=== PATIENT | female | born 1955 | race Caucasian/White ===

== ENCOUNTER → 2018-09-29 | Outpatient (CLI) | payer OTHER ==
--- NOTE | 2018-11-17 11:48 | EM ---
EVENT MONITOR A 30-DAY EVENT MONITOR DATE OF SERVICE: September 29, 2018 The patient was monitored for 30 days. The baseline rhythm appeared to be a sinus mechanism. The patient did have multiple episodes of advanced AV block. She did have multiple episodes of sinus pauses with the longest of 10 seconds at 6:00 in the afternoon. Beside that, she did have multiple episodes of paroxysmal atrial tachycardia. CONCLUSION: 1. This is a 30-day event monitor. 2. Sinus rhythm as a baseline mechanism. 3. Evidence of tachy-angela syndrome. 4. Evidence of advanced AV block seen. 5. Evidence of sinus pauses with the longest of 10 seconds. 6. Evidence of multifocal paroxysmal atrial tachycardia. MMODL / IJN: [id number] /
== END | disposition home or self-care (01) ==
LOC: RADECHMAIN 12:36
PROVIDERS: ATTEND Internal Medicine
DX: I47.1 Supraventricular tachycardia (principal); I10 Essential (primary) hypertension
CPT/HCPCS: 93270

== ENCOUNTER 2018-12-11 10:19 | Emergency (ER) | payer OTHER ==
[2018-12-11 10:28] VITALS: TEMP 98.4
--- NOTE | 2018-12-11 10:59 | ED ---
General Adult HPI - General Chief complaint: Arrhythmia/Palpitations Stated complaint: palpitations Time Seen by Provider: 12/11/18 10:30 Source: patient, RN notes reviewed Mode of arrival: wheelchair Limitations: no limitations - History of Present Illness Initial comments: Patient is a pleasant 63-year-old female presenting to the emergency Department with complaints of palpitations. Palpitations described as a pounding heartbeat. Patient does have history of previous atrial fibrillation. Patient was taken off of her beta santiago one week ago. Patient started having symptoms 2 days ago. No chest pain. Patient did have some shaking of her right arm and right leg few days ago. Patient did have some back discomfort 2 days ago. None since that time. No chest pain. No dyspnea. - Related Data Home Medications Medication Instructions Recorded Confirmed Atorvastatin Calcium [Lipitor] 10 mg PO DAILY 12/11/18 12/11/18 Hydrochlorothiazide 50 mg PO DAILY 12/11/18 12/11/18 INSULIN LISPRO (humaLOG) [humaLOG] 5 units SQ DAILY 12/11/18 12/11/18 Insulin Glargine,Hum.rec.anlog 18 units SQ DAILY 12/11/18 12/11/18 [Toujeo Solostar] Lisinopril [Zestril] 40 mg PO DAILY 12/11/18 12/11/18 Metoprolol Tartrate [Lopressor] 100 mg PO BID 12/11/18 12/11/18 Triamterene/Hydrochlorothiazid 1 tab PO DAILY 12/11/18 12/11/18 [Triamterene-Hctz 37.5-25 mg Tb] Warfarin Sodium [Coumadin] 3 mg PO SUTUTH 12/11/18 12/11/18 Warfarin Sodium [Coumadin] 4 mg PO MOWEFRSA 12/11/18 12/11/18 amLODIPine [Norvasc] 10 mg PO DAILY 12/11/18 12/11/18 Allergies Allergy/AdvReac Type Severity Reaction Status Date / Time shellfish derived [Shellfish] AdvReac Nausea & Verified 12/11/18 11:28 Vomiting & Diarrhea Review of Systems ROS Statement: Those systems with pertinent positive or pertinent negative responses have been documented in the HPI. ROS Other: All systems not noted in ROS Statement are negative. Constitutional: Denies: fever Eyes: Denies: eye pain ENT: Denies: ear pain Respiratory: Denies: cough Cardiovascular: Reports: palpitations. Denies: chest pain Endocrine: Denies: fatigue Gastrointestinal: Denies: abdominal pain Genitourinary: Denies: dysuria Musculoskeletal: Reports: as per HPI Skin: Denies: rash Neurological: Denies: weakness Past Medical History Past Medical History: Atrial Fibrillation, COPD, Diabetes Mellitus, GERD/Reflux, Hyperlipidemia, Hypertension Additional Past Medical History / Comment(s): Lung CA (in remission) History of Any Multi-Drug Resistant Organisms: None Reported Additional Past Surgical History / Comment(s): Lung resection Past Psychological History: No Psychological Hx Reported Smoking Status: Former smoker Past Alcohol Use History: Occasional Past Drug Use History: None Reported General Exam Limitations: no limitations General appearance: alert, in no apparent distress Head exam: Present: atraumatic Eye exam: Present: normal appearance, PERRL ENT exam: Present: normal oropharynx Neck exam: Present: normal inspection Respiratory exam: Present: normal lung sounds bilaterally Cardiovascular Exam: Present: regular rate, normal rhythm, other Expanded Peripheral pulses: 2+: Radial (R), Radial (L), Dorsalis Pedis (R), Dorsalis Pedis (L) GI/Abdominal exam: Present: soft. Absent: tenderness Extremities exam: Present: normal inspection. Absent: pedal edema, calf tenderness Neurological exam: Present: alert Psychiatric exam: Present: normal affect, normal mood Skin exam: Present: normal color Course Vital Signs 12/11/18 12/11/18 12/11/18 10:25 10:43 10:44 Temperature 98.4 F Pulse Rate 125 H 101 H 101 H Pulse Rate [ Newspaper Peddler ] Respiratory 18 25 H 20 Rate Blood Pressure 187/91 185/92 O2 Sat by Pulse 98 95 Oximetry 12/11/18 12/11/18 12/11/18 10:46 10:50 11:30 Temperature Pulse Rate 104 H 90 Pulse Rate [ 106 H Newspaper Peddler ] Respiratory 20 16 Rate Blood Pressure 176/89 137/89 O2 Sat by Pulse 94 L 98 Oximetry 12/11/18 12:30 Temperature Pulse Rate 81 Pulse Rate [ Newspaper Peddler ] Respiratory 20 Rate Blood Pressure 158/79 O2 Sat by Pulse 98 Oximetry - Reevaluation(s) Reevaluation #1: 12/11/18 10:58 Heart rhythm on the monitor is sinus rhythm. Rate varies between 87 and 105. Patient is placed on heart monitor secondary to palpitations and to monitor for arrhythmia. EKG Findings - EKG Comments: EKG Findings:: Sinus tachycardia 107. MD 168. QRS 86. QT 322. QTC 429. Normal axis. Normal QRS. No acute ST change. Medical Decision Making - Medical Decision Making Patient reevaluated and resting comfortably in bed. Heart rate 85. Patient symptom-free at this time. Patient updated on results and need for follow-up. - Lab Data Result diagrams: 12/11/18 10:40 12/11/18 10:40 Lab Results 12/11/18 12/11/18 12/11/18 Range/Units 10:40 10:40 10:40 WBC 6.3 (3.8-10.6) k/uL RBC 4.22 (3.80-5.40) m/uL Hgb 14.0 (11.4-16.0) gm/dL Hct 43.3 (34.0-46.0) % MCV 102.6 H (80.0-100.0) fL MCH 33.3 (25.0-35.0) pg MCHC 32.4 (31.0-37.0) g/dL RDW 12.7 (11.5-15.5) % Plt Count 209 (150-450) k/uL Neutrophils % 66 % Lymphocytes % 22 % Monocytes % 5 % Eosinophils % 4 % Basophils % 0 % Neutrophils # 4.2 (1.3-7.7) k/uL Lymphocytes # 1.4 (1.0-4.8) k/uL Monocytes # 0.3 (0-1.0) k/uL Eosinophils # 0.3 (0-0.7) k/uL Basophils # 0.0 (0-0.2) k/uL Macrocytosis Slight PT 28.2 H (9.0-12.0) sec INR 2.9 H (<1.2) APTT 37.3 H (22.0-30.0) sec D-Dimer 0.33 (<0.60) mg/L FEU Sodium 138 (137-145) mmol/L Potassium 4.5 (3.5-5.1) mmol/L Chloride 105 (98-107) mmol/L Carbon Dioxide 23 (22-30) mmol/L Anion Gap 10 mmol/L BUN 21 H (7-17) mg/dL Creatinine 1.28 H (0.52-1.04) mg/dL Est GFR (CKD-EPI)AfAm 52 (>60 ml/min/1.73 sqM) Est GFR (CKD-EPI)NonAf 45 (>60 ml/min/1.73 sqM) Glucose 172 H (74-99) mg/dL Calcium 9.7 (8.4-10.2) mg/dL Magnesium 1.6 (1.6-2.3) mg/dL Total Bilirubin 0.6 (0.2-1.3) mg/dL AST 28 (14-36) U/L ALT 22 (9-52) U/L Alkaline Phosphatase 74 (38-126) U/L Troponin I (0.000-0.034) ng/mL Total Protein 7.3 (6.3-8.2) g/dL Albumin 4.6 (3.5-5.0) g/dL TSH 2.020 (0.465-4.680) mIU/L Free T4 1.28 (0.78-2.19) ng/dL Free T3 pg/mL 4.4 (2.8-5.3) pg/ml 12/11/18 Range/Units 10:40 WBC (3.8-10.6) k/uL RBC (3.80-5.40) m/uL Hgb (11.4-16.0) gm/dL Hct (34.0-46.0) % MCV (80.0-100.0) fL MCH (25.0-35.0) pg MCHC (31.0-37.0) g/dL RDW (11.5-15.5) % Plt Count (150-450) k/uL Neutrophils % % Lymphocytes % % Monocytes % % Eosinophils % % Basophils % % Neutrophils # (1.3-7.7) k/uL Lymphocytes # (1.0-4.8) k/uL Monocytes # (0-1.0) k/uL Eosinophils # (0-0.7) k/uL Basophils # (0-0.2) k/uL Macrocytosis PT (9.0-12.0) sec INR (<1.2) APTT (22.0-30.0) sec D-Dimer (<0.60) mg/L FEU Sodium (137-145) mmol/L Potassium (3.5-5.1) mmol/L Chloride (98-107) mmol/L Carbon Dioxide (22-30) mmol/L Anion Gap mmol/L BUN (7-17) mg/dL Creatinine (0.52-1.04) mg/dL Est GFR (CKD-EPI)AfAm (>60 ml/min/1.73 sqM) Est GFR (CKD-EPI)NonAf (>60 ml/min/1.73 sqM) Glucose (74-99) mg/dL Calcium (8.4-10.2) mg/dL Magnesium (1.6-2.3) mg/dL Total Bilirubin (0.2-1.3) mg/dL AST (14-36) U/L ALT (9-52) U/L Alkaline Phosphatase (38-126) U/L Troponin I <0.012 (0.000-0.034) ng/mL Total Protein (6.3-8.2) g/dL Albumin (3.5-5.0) g/dL TSH (0.465-4.680) mIU/L Free T4 (0.78-2.19) ng/dL Free T3 pg/mL (2.8-5.3) pg/ml - Radiology Data Radiology results: image reviewed (Chest x-ray shows no acute process) Disposition Clinical Impression: Palpitations Disposition: HOME SELF-CARE Condition: Stable Instructions (If sedation given, give patient instructions): Heart Palpitations (ED) Additional Instructions: Please follow-up with primary care physician in the next day or 2 for recheck. Please also follow-up with your corporate security officer this week. Return for increased heart rate, chest pain, difficulty breathing, worsening symptoms or other concerns. Is patient prescribed a controlled substance at d/c from ED?: No Referrals: Ludwig Madison MD [Primary Care Provider] - 1-2 days Michael Cardenas MD [STAFF PHYSICIAN] - 1-2 days Time of Disposition: 14:19
--- NOTE | 2018-12-11 11:26 | XR ---
EXAMINATION TYPE: XR chest 2V DATE OF EXAM: 12/11/2018 COMPARISON: NONE HISTORY: Dysrhythmia TECHNIQUE: Frontal and lateral views of the chest are obtained. FINDINGS: Surgical clips are present in the the right upper chest. There is a Port-A-Cath present wi th the distal tip of the catheter in the superior vena cava level. Aorta is dense. There is no pneumo thorax or pleural effusion. Cardiac mediastinal silhouette, pulmonary vascularity and judson within nor mal limits. Lucency is well-circumscribed in the right humeral head with sclerotic margin and of ques tionable clinical significance. Prominent lung lines with flattening hemidiaphragms may be indicative of COPD. IMPRESSION: No acute cardiopulmonary process. Additional findings above.
[2018-12-11 11:52] LABS: Albumin 4.6 g/dL (3.5-5.0); Calcium 9.7 mg/dL (8.4-10.2); Magnesium 1.6 mg/dL (1.6-2.3); Potassium 4.5 mmol/L (3.5-5.1); Total Bilirubin 0.6 mg/dL (0.2-1.3); Total Protein 7.3 g/dL (6.3-8.2)
[2018-12-11 12:02] LABS: Basophils % (A) 0 %; Eosinophils # (A) 0.3 k/uL (0-0.7); Eosinophils % (A) 4 %; HCT 43.3 % (34.0-46.0); Lymphocytes # (A) 1.4 k/uL (1.0-4.8); Lymphocytes % (A) 22 %; MCH 33.3 pg (25.0-35.0); MCHC 32.4 g/dL (31.0-37.0); MCV 102.6 fL (80.0-100.0); Macrocytosis Slight; Mean Platelet Volume 7.6; Monocytes # (A) 0.3 k/uL (0-1.0); Monocytes % (A) 5 %; Neutrophils # (A) 4.2 k/uL (1.3-7.7); Neutrophils % (A) 66 %; Platelet Count 209 k/uL (150-450); RBC 4.22 m/uL (3.80-5.40); RDW 12.7 % (11.5-15.5); WBC 6.3 k/uL (3.8-10.6)
[2018-12-11 12:06] LABS: D-Dimer 0.33 mg/L FEU (<0.60); INR 2.9 (<1.2); Partial Thromboplastin Time 37.3 sec (22.0-30.0); Prothrombin Time 28.2 sec (9.0-12.0)
[2018-12-11 12:07] LABS: T4, Free (Free Thyroxine) 1.28 ng/dL (0.78-2.19)
[2018-12-11 14:36] VITALS: BP 161/85; PULSE 86; RESP 18
== END 2018-12-11 14:48 | disposition home or self-care (01) ==
LOC: EC 10:19
DX: R00.2 Palpitations (principal); I48.91 Unspecified atrial fibrillation; E11.9 Type 2 diabetes mellitus without complications; I10 Essential (primary) hypertension; E78.5 Hyperlipidemia, unspecified; Z87.891 Personal history of nicotine dependence; Z91.013 Allergy to seafood; Z79.01 Long term (current) use of anticoagulants; Z79.4 Long term (current) use of insulin; Z79.899 Other long term (current) drug therapy; Z85.118 Personal history of other malignant neoplasm of bronchus and lung; Z90.2 Acquired absence of lung [part of]
CPT/HCPCS: 36415; 71046; 80053; 83735; 84439; 84443; 84481; 84484; 85025; 85379; 85610; 85730; 93005; 99285

== ENCOUNTER 2019-02-10 11:51 | Observation (INO) | payer OTHER ==
[2019-02-10] MEDS ORDERED: NITROGLYCERIN OINT 1 INCH/GM PACKET TOPICAL STA (12:15)
[2019-02-10] MEDS ORDERED: ASPIRIN 81 MG PO STA (12:15)
--- NOTE | 2019-02-10 12:24 | ED ---
General Adult HPI - General Chief complaint: Chest Pain Stated complaint: Chest Pain Time Seen by Provider: 02/10/19 12:05 Source: patient Mode of arrival: wheelchair Limitations: no limitations - History of Present Illness Initial comments: Patient is a pleasant 63-year-old female presenting to the emergency Department with complaints of palpitations and chest discomfort. Onset of symptoms was yesterday. Patient only has mild discomfort at this time, no palpitations. Symptoms have been waxing and waning. Patient has had somewhat similar symptoms previously and has seen Dr. Winters for this. Patient had an MRI done recently of her chest however does not have results. Chest discomfort is without radiation and has been mild to moderate. No associated dyspnea, nausea, or diaphoresis. - Related Data Home Medications Medication Instructions Recorded Confirmed Atorvastatin Calcium [Lipitor] 10 mg PO HS 12/11/18 02/10/19 Hydrochlorothiazide 50 mg PO DAILY 12/11/18 02/10/19 Insulin Glargine,Hum.rec.anlog 18 units SQ DAILY 12/11/18 02/10/19 [Toujeo Solostar] Lisinopril [Zestril] 40 mg PO DAILY 12/11/18 02/10/19 Triamterene/Hydrochlorothiazid 1 tab PO DAILY 12/11/18 02/10/19 [Triamterene-Hctz 37.5-25 mg Tb] Warfarin Sodium [Coumadin] 3 mg PO SUTUTH 12/11/18 02/10/19 Warfarin Sodium [Coumadin] 4 mg PO MOWEFRSA 12/11/18 02/10/19 amLODIPine [Norvasc] 10 mg PO DAILY 12/11/18 02/10/19 Allergies Allergy/AdvReac Type Severity Reaction Status Date / Time Iodinated Contrast- Oral and Allergy Unknown Verified 02/10/19 13:12 IV Dye shellfish derived [Shellfish] AdvReac Nausea & Verified 02/10/19 13:12 Vomiting & Diarrhea Review of Systems ROS Statement: Those systems with pertinent positive or pertinent negative responses have been documented in the HPI. ROS Other: All systems not noted in ROS Statement are negative. Constitutional: Denies: fever Eyes: Denies: eye pain ENT: Denies: ear pain Respiratory: Denies: cough Cardiovascular: Reports: chest pain, palpitations Endocrine: Denies: fatigue Gastrointestinal: Denies: abdominal pain Genitourinary: Denies: dysuria Musculoskeletal: Denies: back pain Skin: Denies: rash Neurological: Denies: weakness Past Medical History Past Medical History: Atrial Fibrillation, COPD, Diabetes Mellitus, GERD/Reflux, Hyperlipidemia, Hypertension Additional Past Medical History / Comment(s): Lung CA (in remission) History of Any Multi-Drug Resistant Organisms: None Reported Additional Past Surgical History / Comment(s): Lung resection Past Psychological History: No Psychological Hx Reported Smoking Status: Former smoker Past Alcohol Use History: Occasional Past Drug Use History: None Reported General Exam Limitations: no limitations General appearance: alert, in no apparent distress Head exam: Present: atraumatic Eye exam: Present: normal appearance, PERRL ENT exam: Present: normal oropharynx Neck exam: Present: normal inspection Respiratory exam: Present: normal lung sounds bilaterally. Absent: chest wall tenderness Cardiovascular Exam: Present: regular rate, normal rhythm Expanded Peripheral pulses: 2+: Radial (R), Radial (L), Posterior Tibialis (R), Posterior Tibialis (L), Dorsalis Pedis (R), Dorsalis Pedis (L) GI/Abdominal exam: Present: soft. Absent: tenderness Extremities exam: Present: normal inspection. Absent: pedal edema, calf tenderness Neurological exam: Present: alert Psychiatric exam: Present: normal affect, normal mood Skin exam: Present: normal color Course Vital Signs 02/10/19 02/10/19 11:51 13:33 Temperature 97.9 F Pulse Rate 104 H 95 Respiratory 18 18 Rate Blood Pressure 147/79 131/66 O2 Sat by Pulse 97 98 Oximetry EKG Findings - EKG Comments: EKG Findings:: Sinus tachycardia 108. MT 160. QRS 86. QT 310. QTc 4:15. Normal axis. Normal QRS. No acute ST change Medical Decision Making - Medical Decision Making Patient reevaluated and resting comfortably in bed. Patient updated on results and plan. Case was discussed in detail with Dr. Ny, who will admit covering for Dr. Madison. - Lab Data Result diagrams: 02/10/19 12:25 02/10/19 12:25 Lab Results 02/10/19 02/10/19 02/10/19 Range/Units 12:25 12:25 12:25 WBC 6.8 (3.8-10.6) k/uL RBC 3.62 L (3.80-5.40) m/uL Hgb 12.3 (11.4-16.0) gm/dL Hct 36.0 (34.0-46.0) % MCV 99.6 (80.0-100.0) fL MCH 34.1 (25.0-35.0) pg MCHC 34.2 (31.0-37.0) g/dL RDW 13.6 (11.5-15.5) % Plt Count 294 (150-450) k/uL Neutrophils % 77 % Lymphocytes % 13 % Monocytes % 5 % Eosinophils % 3 % Basophils % 1 % Neutrophils # 5.2 (1.3-7.7) k/uL Lymphocytes # 0.9 L (1.0-4.8) k/uL Monocytes # 0.3 (0-1.0) k/uL Eosinophils # 0.2 (0-0.7) k/uL Basophils # 0.1 (0-0.2) k/uL PT 17.9 H (9.0-12.0) sec INR 1.8 H (<1.2) APTT 32.4 H (22.0-30.0) sec Sodium 140 (137-145) mmol/L Potassium 4.5 (3.5-5.1) mmol/L Chloride 108 H (98-107) mmol/L Carbon Dioxide 24 (22-30) mmol/L Anion Gap 8 mmol/L BUN 15 (7-17) mg/dL Creatinine 1.37 H (0.52-1.04) mg/dL Est GFR (CKD-EPI)AfAm 48 (>60 ml/min/1.73 sqM) Est GFR (CKD-EPI)NonAf 42 (>60 ml/min/1.73 sqM) Glucose 179 H (74-99) mg/dL Calcium 9.6 (8.4-10.2) mg/dL Magnesium 1.5 L (1.6-2.3) mg/dL Total Bilirubin 0.4 (0.2-1.3) mg/dL AST 31 (14-36) U/L ALT 27 (9-52) U/L Alkaline Phosphatase 64 (38-126) U/L Creatine Kinase 63 (30-135) U/L Troponin I (0.000-0.034) ng/mL Total Protein 6.6 (6.3-8.2) g/dL Albumin 4.1 (3.5-5.0) g/dL 02/10/19 Range/Units 12:25 WBC (3.8-10.6) k/uL RBC (3.80-5.40) m/uL Hgb (11.4-16.0) gm/dL Hct (34.0-46.0) % MCV (80.0-100.0) fL MCH (25.0-35.0) pg MCHC (31.0-37.0) g/dL RDW (11.5-15.5) % Plt Count (150-450) k/uL Neutrophils % % Lymphocytes % % Monocytes % % Eosinophils % % Basophils % % Neutrophils # (1.3-7.7) k/uL Lymphocytes # (1.0-4.8) k/uL Monocytes # (0-1.0) k/uL Eosinophils # (0-0.7) k/uL Basophils # (0-0.2) k/uL PT (9.0-12.0) sec INR (<1.2) APTT (22.0-30.0) sec Sodium (137-145) mmol/L Potassium (3.5-5.1) mmol/L Chloride (98-107) mmol/L Carbon Dioxide (22-30) mmol/L Anion Gap mmol/L BUN (7-17) mg/dL Creatinine (0.52-1.04) mg/dL Est GFR (CKD-EPI)AfAm (>60 ml/min/1.73 sqM) Est GFR (CKD-EPI)NonAf (>60 ml/min/1.73 sqM) Glucose (74-99) mg/dL Calcium (8.4-10.2) mg/dL Magnesium (1.6-2.3) mg/dL Total Bilirubin (0.2-1.3) mg/dL AST (14-36) U/L ALT (9-52) U/L Alkaline Phosphatase (38-126) U/L Creatine Kinase (30-135) U/L Troponin I <0.012 (0.000-0.034) ng/mL Total Protein (6.3-8.2) g/dL Albumin (3.5-5.0) g/dL - Radiology Data Radiology results: image reviewed (Chest x-ray shows chronic changes) Disposition Clinical Impression: Chest pain Disposition: ADMITTED IP TO THIS HOSP Is patient prescribed a controlled substance at d/c from ED?: No Referrals: Ludwig Madison MD [Primary Care Provider] - 1-2 days Decision Time: 14:30
[2019-02-10 12:37] LABS: Basophils # (A) 0.1 k/uL (0-0.2); Basophils % (A) 1 %; Eosinophils # (A) 0.2 k/uL (0-0.7); Eosinophils % (A) 3 %; HGB 12.3 gm/dL (11.4-16.0); Lymphocytes # (A) 0.9 k/uL (1.0-4.8); Lymphocytes % (A) 13 %; MCH 34.1 pg (25.0-35.0); MCHC 34.2 g/dL (31.0-37.0); MCV 99.6 fL (80.0-100.0); Mean Platelet Volume 7.2; Monocytes # (A) 0.3 k/uL (0-1.0); Monocytes % (A) 5 %; Neutrophils # (A) 5.2 k/uL (1.3-7.7); Neutrophils % (A) 77 %; Platelet Count 294 k/uL (150-450); RBC 3.62 m/uL (3.80-5.40); RDW 13.6 % (11.5-15.5); WBC 6.8 k/uL (3.8-10.6)
[2019-02-10 12:46] LABS: INR 1.8 (<1.2); Partial Thromboplastin Time 32.4 sec (22.0-30.0); Prothrombin Time 17.9 sec (9.0-12.0)
[2019-02-10 12:47] LABS: Albumin 4.1 g/dL (3.5-5.0); Calcium 9.6 mg/dL (8.4-10.2); Magnesium 1.5 mg/dL (1.6-2.3); Potassium 4.5 mmol/L (3.5-5.1); Total Bilirubin 0.4 mg/dL (0.2-1.3); Total Protein 6.6 g/dL (6.3-8.2)
--- NOTE | 2019-02-10 12:52 | XR ---
EXAMINATION TYPE: XR chest 2V DATE OF EXAM: 02/10/2019 COMPARISON: 12/11/2018 HISTORY: 63-year-old female with chest pain, shortness of breath TECHNIQUE: PA and lateral views FINDINGS: Right anterior chest wall injection port with catheter tip at the upper SVC level. Heart normal size. Aorta and pulmonary vasculature within normal limits. Surgical clips projecting over the right upper chest and right hilum. Some strandy atelectasis or scarring is stable at the right base. No consolid ation or pleural effusion. IMPRESSION: Chronic changes with strandy scarring or atelectasis at the right base and surgical clips projecting over the right upper lobe and right hilum. No acute process seen.
[2019-02-10] MEDS ORDERED: MAGNESIUM OXIDE 400 MG TAB PO STA (13:12)
[2019-02-10] MEDS ORDERED: NITROGLYCERIN SL TABS 0.4 MG TAB SUBLINGUAL PRN (14:30)
--- NOTE | 2019-02-10 16:22 | P.HPIM ---
History of Present Illness H&P Date: 02/10/19 67 and years old female with past medical history of paroxysmal atrial fibrillation, COPD, type 2 diabetes, hypertension, hyperlipidemia, history of lung cancer in remission since 2013 presents in with the acute onset of chest pain associated with palpitation that started yesterday when patient woke up. Palpitation has been going on for a few weeks but the chest pain was new and therefore patient decided come to the ER. She has been evaluated by Dr. Villa previously with the event monitor and was found to have evidence of tachycardia bradycardia syndrome, advanced AV block multiple sinus pauses and multifocal paroxysmal atrial tachycardia and was continued on Coumadin. Patient otherwise denies any shortness of breath, nausea vomiting abdominal pain dizziness or passing out incidence. Labs evaluated in the ER suggested creatinine 1.37, glucose of 179 magnesium 1.5. Troponin 3 ordered. EKG suggests sinus tachycardia. Patient is admitted as observation and will be matias luated by cardiology Review of Systems Constitutional: Denies chills, Denies fever, Denies lethargy, Denies malaise, Denies poor appetite, Denies weakness, Denies weight loss Eyes: denies decreased vision, denies diplopia, denies discharge, denies pain Ears: deny: decreased hearing Ears, nose, mouth and throat: Denies dental pain, Denies headache, Denies nasal discharge, Denies nose pain Cardiovascular endorses chest pain, Denies decreased exercise tolerance, Denies edema, Denies high blood pressure, endorses irregular heart beat, endorses palpitations, Denies paroxysmal nocturnal dyspnea, endorses rapid heart beat, Denies shortness of breath Respiratory: Denies congestion, Denies cough, Denies cough with sputum, Denies dyspnea, Denies home oxygen, Denies wheezing Gastrointestinal: Denies abdominal pain, Denies change in bowel habits, Denies coffee ground emesis, Denies early satiety, Denies excessive gas, Denies heartburn, Denies hematemesis, Denies hematochezia, Denies loss of appetite, Denies nausea, Denies vomiting Genitourinary: Denies dysuria, Denies flank pain, Denies kidney stones, Denies menorrhagia, Denies urgency, Denies urinary frequency Musculoskeletal: Denies gait dysfunction, Denies limitation of motion, Denies morning stiffness, Denies muscle cramps Integumentary: Denies rash, Denies wounds, Denies brittle nails, Denies change in hair/nails, Denies darkening of skin Neurological: Denies balance difficulties, Denies change in speech, Denies double vision, Denies gait dysfunction, Denies loss of vision, Denies motor disturbance, Denies numbness, Denies paralysis, Denies paresthesias, Denies seizures Psychiatric: Denies anxiety, Denies depression Endocrine: Denies excessive sweating, Denies excessive thirst, Denies high blood sugars, Denies palpitations Hematologic/Lymphatic: Denies easy bruising, Denies lymphadenopathy Past Medical History Past Medical History: Atrial Fibrillation, COPD, Diabetes Mellitus, GERD/Reflux, Hyperlipidemia, Hypertension Additional Past Medical History / Comment(s): Lung CA (in remission) History of Any Multi-Drug Resistant Organisms: None Reported Additional Past Surgical History / Comment(s): Lung resection Past Psychological History: No Psychological Hx Reported Smoking Status: Former smoker Past Alcohol Use History: Occasional Past Drug Use History: None Reported Medications and Allergies Home Medications Medication Instructions Recorded Confirmed Type Atorvastatin Calcium [Lipitor] 10 mg PO HS 12/11/18 02/10/19 History Hydrochlorothiazide 50 mg PO DAILY 12/11/18 02/10/19 History Insulin Glargine,Hum.rec.anlog 18 units SQ DAILY 12/11/18 02/10/19 History [Toujeo Solostar] Lisinopril [Zestril] 40 mg PO DAILY 12/11/18 02/10/19 History Triamterene/Hydrochlorothiazid 1 tab PO DAILY 12/11/18 02/10/19 History [Triamterene-Hctz 37.5-25 mg Tb] Warfarin Sodium [Coumadin] 3 mg PO SUTUTH 12/11/18 02/10/19 History Warfarin Sodium [Coumadin] 4 mg PO MOWEFRSA 12/11/18 02/10/19 History amLODIPine [Norvasc] 10 mg PO DAILY 12/11/18 02/10/19 History Allergies Allergy/AdvReac Type Severity Reaction Status Date / Time Iodinated Contrast- Oral and Allergy Unknown Verified 02/10/19 13:12 IV Dye shellfish derived [Shellfish] AdvReac Nausea & Verified 02/10/19 13:12 Vomiting & Diarrhea Physical Exam Vitals: Vital Signs Temp Pulse Resp BP Pulse Ox 02/10/19 15:44 98.4 F 91 18 144/74 95 02/10/19 13:33 95 18 131/66 98 02/10/19 11:51 97.9 F 104 H 18 147/79 97 Intake and Output 02/10/19 02/10/19 02/10/19 06:59 14:59 22:59 Other: Weight 67.132 kg - Constitutional General appearance: cooperative, no acute distress, obese - EENT Eyes: anicteric sclerae, PERRLA, normal appearance ENT: hearing grossly normal - Neck Neck: no lymphadenopathy, normal ROM, no other, no rigidity, no stridor, no thyromegaly - Respiratory Respiratory: bilateral: CTA, negative: diminished, dullness, rales, rhonchi - Cardiovascular Rhythm: regular Heart sounds: normal: S1, S2 Abnormal Heart Sounds: no systolic murmur, no diastolic murmur, no rub, no S3 Gallop, no S4 Gallop, no click, no other - Gastrointestinal General gastrointestinal: normal bowel sounds, soft - Integumentary Integumentary: no rash - Neurologic Neurologic: CNII-XII intact - Musculoskeletal Musculoskeletal: gait normal, strength equal bilaterally - Psychiatric Psychiatric: A&O x's 3, appropriate affect Results CBC & Chem 7: 02/10/19 12:25 02/10/19 12:25 Labs: Abnormal Lab Results - Last 24 Hours (Table) 02/10/19 02/10/19 02/10/19 Range/Units 12:25 12:25 12:25 RBC 3.62 L (3.80-5.40) m/uL Lymphocytes # 0.9 L (1.0-4.8) k/uL PT 17.9 H (9.0-12.0) sec INR 1.8 H (<1.2) APTT 32.4 H (22.0-30.0) sec Chloride 108 H (98-107) mmol/L Creatinine 1.37 H (0.52-1.04) mg/dL Glucose 179 H (74-99) mg/dL Magnesium 1.5 L (1.6-2.3) mg/dL Thrombosis Risk Factor Assmnt - DVT/VTE Prophylaxis DVT/VTE Prophylaxis: Pharmacologic Prophylaxis ordered Assessment and Plan Plan: #1 acute chest pain associated with palpitation with history of atrial fibrillation. Recent event monitor positive for tachybradycardia syndrome. troponin X3. Echo ordered cardiology evaluation pending. Metoprolol initiated at 12.5 mg twice a day. Hold Norvasc #2 hypertension continue HCTZ/triamcinolone, continue lisinopril 40 mg by mouth daily hold Norvasc initiated on metoprolol 12.5 twice a day #3 diabetes type 2 continue glargine at 15 units daily #4 of atrial fibrillation and paroxysmal continue Coumadin at patient's home dose of 3 mg Tuesday and and 4 mg on the rest of the days. INR subtherapeutic repeat INR tomorrow #5 of lung cancer in remission #6 history of tobacco use currently ex-smoker #7 hyperlipidemia continue Lipitor 10 mg daily at bedtime. Lipid panel pending #8 CODE STATUS full code
[2019-02-10] MEDS ORDERED: MAGNESIUM SULFATE-D5W PMX 1 GM in DEXTROSE/WATER 1 100ML.BAG IVPB ONE (16:30)
[2019-02-10 16:35] VITALS: BMI 28.9
[2019-02-10 17:04] LABS: Glucose,Whole Blood 130 mg/dL (75-99)
[2019-02-10] MEDS ORDERED: WARFARIN 2 MG TAB PO SCH (18:00)
[2019-02-10] MEDS: NITROGLYCERIN OINT 1 INCH/GM PACKET TOPICAL SCH ×2 (19:18→23:25)
[2019-02-10] MEDS ORDERED: ATORVASTATIN 10 MG TAB PO SCH (21:00)
[2019-02-10] MEDS: METOPROLOL TARTRATE 12.5 MG TAB PO SCH ×2 (21:15→21:17)
[2019-02-10 21:25] LABS: Glucose,Whole Blood 118 mg/dL (75-99)
[2019-02-11 03:56] LABS: Cholesterol 126 mg/dL (<200); HDL Cholesterol 60 mg/dL (40-60); LDL Cholesterol,Calculated 5 mg/dL (0-99); Triglycerides 304 mg/dL (<150)
[2019-02-11] MEDS: NITROGLYCERIN OINT 1 INCH/GM PACKET TOPICAL SCH ×2 (05:52→12:30)
[2019-02-11 06:55] LABS: Glucose,Whole Blood 79 mg/dL (75-99)
[2019-02-11] MEDS: METOPROLOL TARTRATE 12.5 MG TAB PO SCH (08:20)
[2019-02-11] MEDS ORDERED: ASPIRIN 325 MG TAB PO SCH (09:00)
[2019-02-11] MEDS ORDERED: TRIAMTERENE-HCTZ 37.5-25MG 1 EACH TAB PO SCH (09:00)
[2019-02-11] MEDS ORDERED: INSULIN DETEMIR (LEVEMIR) 100 UNIT/ML SYR SQ SCH ×2 (09:00)
[2019-02-11] MEDS ORDERED: LISINOPRIL 20 MG TAB PO SCH (09:00)
--- NOTE | 2019-02-11 11:26 | P.DS ---
Providers Date of admission: 02/10/19 14:30 Expected date of discharge: 02/11/19 Attending physician: Mackenzie Herrera MD Consults: 02/10/19 14:30 Consult Physician Urgent Consulting Provider: Larry Mathew Consult Reason/Comments: Chest pain and palpitations Do you want consulting provider notified?: Yes Primary care physician: [facility] Course: 67 and years old female with past medical history of paroxysmal atrial fibrillation, COPD, type 2 diabetes, hypertension, hyperlipidemia, history of lung cancer in remission since 2013 presents in with the acute onset of chest pain associated with palpitation that started yesterday when patient woke up. Palpitation has been going on for a few weeks but the chest pain was new and therefore patient decided come to the ER. She has been evaluated by Dr. Villa previously with the event monitor and was found to have evidence of tachycardia bradycardia syndrome, advanced AV block multiple sinus pauses and multifocal paroxysmal atrial tachycardia and was continued on Coumadin. Patient otherwise denies any shortness of breath, nausea vomiting abdominal pain dizziness or passing out incidence. Labs evaluated in the ER suggested creatinine 1.37, glucose of 179 magnesium 1.5. Troponin 3 ordered. EKG suggests sinus tachycardia. Patient is admitted as observation and will be evaluated by cardiology 02/11: Patient denies having any chest pain since she was admitted. She denies any palpitations. She refused to take metoprolol this morning as she has been told by Dr. Cardenas to not take this. This may have been because she was on event monitor and he wanted to capture the underlying rhythm. She states that she did have an echocardiogram done at Dr. Cardenas's office last month. No need to repeat this. Troponins have been negative on 3 draws. Patient has been seen by turn down attendant with no plan for further workup. Patient can follow-up with her primary turn down attendant. Discharge diagnoses: #1 acute chest pain associated with palpitation with history of atrial fibrillation. Recent event monitor positive for tachybradycardia syndrome. #2 hypertension #3 diabetes type 2 #4 atrial fibrillation paroxysmal #5 history of lung cancer in remission #6 history of tobacco use currently ex-smoker #7 hyperlipidemia Discharge plan: Home Impression and plan of care have been directed as dictated by the signing physician. Amaya Michelle nurse practitioner acting as scribe for signing physician. Patient Condition at Discharge: Good Plan - Discharge Summary Discharge Rx Participant: No New Discharge Prescriptions: Continue amLODIPine [Norvasc] 10 mg PO DAILY Lisinopril [Zestril] 40 mg PO DAILY Atorvastatin Calcium [Lipitor] 10 mg PO HS Triamterene/Hydrochlorothiazid [Triamterene-Hctz 37.5-25 mg Tb] 1 tab PO DAILY Hydrochlorothiazide 50 mg PO DAILY Warfarin Sodium [Coumadin] 4 mg PO MOWEFRSA Warfarin Sodium [Coumadin] 3 mg PO SUTUTH Insulin Glargine,Hum.rec.anlog [Toujeo Solostar] 18 units SQ DAILY Discharge Medication List Atorvastatin Calcium [Lipitor] 10 mg PO HS 12/11/18 [History] Hydrochlorothiazide 50 mg PO DAILY 12/11/18 [History] Insulin Glargine,Hum.rec.anlog [Toujeo Solostar] 18 units SQ DAILY 12/11/18 [History] Lisinopril [Zestril] 40 mg PO DAILY 12/11/18 [History] Triamterene/Hydrochlorothiazid [Triamterene-Hctz 37.5-25 mg Tb] 1 tab PO DAILY 12/11/18 [History] Warfarin Sodium [Coumadin] 3 mg PO SUTUTH 12/11/18 [History] Warfarin Sodium [Coumadin] 4 mg PO MOWEFRSA 12/11/18 [History] amLODIPine [Norvasc] 10 mg PO DAILY 12/11/18 [History] Follow up Appointment(s)/Referral(s): Michael Cardenas MD [STAFF PHYSICIAN] - 1 Week (Please call during normal business hours to schedule follow up appointment. ) Ludwig Madison MD [Primary Care Provider] - 1 Week (Please call during normal business hours to schedule follow up appt. ) Patient Instructions/Handouts: Angina (DC), Tachycardia (ED) Discharge Disposition: HOME SELF-CARE
[2019-02-11 11:45] LABS: Glucose,Whole Blood 84 mg/dL (75-99)
[2019-02-11 14:42] VITALS: RESP 18; TEMP 98.2
[2019-02-11 14:44] VITALS: BP 155/70; PULSE 96
[2019-02-11] MEDS ORDERED: WARFARIN 3 MG TAB PO SCH (18:00)
--- NOTE | 2019-02-11 21:35 | CONS ---
CONSULTATION CHIEF COMPLAINT: Palpitations. This is a 67-year-old lady with history of paroxysmal atrial fibrillation, COPD, hypertension, diabetes, dyslipidemia, history of lung cancer, who presented to the hospital with palpitations. She has mild to moderate intensity palpitations, a sharp atypical precordial chest pain. The patient used to be on beta blockers and they have been stopped. Since that time she is having more of these episodes. The patient has had history suggestive of tachy-angela syndrome and had recently had a cardiac MRI. Since being admitted she is doing well, has had 3 sets of cardiac enzymes that are negative. EKG shows sinus tachycardia. PAST MEDICAL HISTORY: Significant for dyslipidemia, hypertension, diabetes. MEDICATIONS: Medications at home include Norvasc 10 daily, Coumadin, Dyazide, Zestril 40 daily, insulin, hydrochlorothiazide and Lipitor. ALLERGIES: As charted. FAMILY HISTORY: Negative for premature coronary artery disease. SOCIAL HISTORY: Social history negative for smoking, EtOH abuse or drug abuse. REVIEW OF SYSTEMS: HEENT is unremarkable. Cardiac as described above. Respiratory as described above. GI negative. negative. Skin negative. Musculoskeletal significant for arthritis. Psychosocial negative. Endocrine negative. Constitutional negative. Oncological negative. Rest of the system review is not relevant. EXAM: Comfortable at rest. Vital signs are stable chest. Blood pressure is elevated at 160/76, respiratory rate is 18. Chest exam reveals good air entry bilaterally. Heart exam reveals first and second heart sounds. No gallop. No murmur. Abdomen is soft, nontender. Exam of extremities did not reveal any edema. Peripheral pulses are felt. EKG shows sinus tachycardia. Cardiac enzymes are negative. INR is 1.8. Hemoglobin is 12.3, platelet count is normal. ASSESSMENT: 1. Palpitations secondary to sinus tachycardia and PACs. 2. Hypertension. 3. History of paroxysmal atrial fibrillation. PLAN: Continue the Coumadin to maintain an INR of 2-2.5. No further cardiac workup at this time. Upon discharge arrange follow up with her primary yard assistant. MMODL / IJN: [id number] /
== END 2019-02-11 14:20 | disposition home or self-care (01) ==
LOC: EC 11:51 → 1SOBS 14:30 → 3SCARD 15:24
PROVIDERS: ADMIT Internal Medicine; ATTEND Internal Medicine
DX: R07.89 Other chest pain (principal); R07.2 Precordial pain; R00.0 Tachycardia, unspecified; I48.0 Paroxysmal atrial fibrillation; I49.5 Sick sinus syndrome; I49.1 Atrial premature depolarization; I10 Essential (primary) hypertension; J44.9 Chronic obstructive pulmonary disease, unspecified; E11.9 Type 2 diabetes mellitus without complications; E78.5 Hyperlipidemia, unspecified; K21.9 Gastro-esophageal reflux disease without esophagitis; Z85.118 Personal history of other malignant neoplasm of bronchus and lung; T44.7X6A Underdosing of beta-adrenoreceptor antagonists, initial encounter; Z87.891 Personal history of nicotine dependence; Z90.2 Acquired absence of lung [part of]; Z79.899 Other long term (current) drug therapy; Z79.01 Long term (current) use of anticoagulants; Z79.4 Long term (current) use of insulin; Z91.041 Radiographic dye allergy status; Z91.013 Allergy to seafood; E66.9 Obesity, unspecified; Z68.28 Body mass index [BMI] 28.0-28.9, adult
CPT/HCPCS: 96365; 96366; 99285; 36415; 93005; 80061; 80053; 82550; 83735; 84484 ×2; 85025; 85610; 85730; 71046; G0378 ×2; J3475

== ENCOUNTER 2019-05-10 09:08 | Emergency (ER) | payer OTHER ==
[2019-05-10 09:17] VITALS: TEMP 97.3
[2019-05-10] MEDS ORDERED: MECLIZINE 25 MG TAB PO STA (09:42)
[2019-05-10] MEDS ORDERED: SODIUM CHLORIDE 0.9% 1,000 ML IV ONE (09:42)
--- NOTE | 2019-05-10 09:55 | ED ---
General Adult HPI - General Chief complaint: Recheck/Abnormal Lab/Rx Stated complaint: DIZZINESS Time Seen by Provider: 05/10/19 09:15 Source: patient, RN notes reviewed, old records reviewed Mode of arrival: wheelchair Limitations: no limitations - History of Present Illness Initial comments: This is a 64-year-old female presents to the emergency department complaining of dizziness. Patient states she got so dizzy today she fell gently to the floor did not hurt anything. Patient states she moves her head the dizziness is worse. Patient states she has no headache she has no numbness or weakness. Patient denies any fever chills per patient denies any decreased hearing or ringing in the ears. Patient denies any chest pain difficulty breathing shortest breath. Patient denies any palpitations. Patient denies any recent head trauma. - Related Data Home Medications Medication Instructions Recorded Confirmed Atorvastatin Calcium [Lipitor] 10 mg PO HS 12/11/18 05/10/19 Hydrochlorothiazide 50 mg PO DAILY 12/11/18 05/10/19 Insulin Glargine,Hum.rec.anlog 18 units SQ DAILY 12/11/18 05/10/19 [Toujeo Solostar] Lisinopril [Zestril] 40 mg PO DAILY 12/11/18 05/10/19 Triamterene/Hydrochlorothiazid 1 tab PO DAILY 12/11/18 05/10/19 [Triamterene-Hctz 37.5-25 mg Tb] Warfarin Sodium [Coumadin] 3 mg PO SUMO 12/11/18 05/10/19 Warfarin Sodium [Coumadin] 4 mg PO WETHFRSA 12/11/18 05/10/19 amLODIPine [Norvasc] 10 mg PO DAILY 12/11/18 05/10/19 Previous Rx's Medication Instructions Recorded Amoxicillin/Potassium Clav 1 each PO Q12HR #28 tab 05/10/19 [Augmentin 875-125 Tablet] Allergies Allergy/AdvReac Type Severity Reaction Status Date / Time Iodinated Contrast Media Allergy Unknown Verified 05/10/19 10:09 [Iodinated Contrast- Oral and IV Dye] shellfish derived [Shellfish] AdvReac Nausea & Verified 05/10/19 10:09 Vomiting & Diarrhea Review of Systems ROS Statement: Those systems with pertinent positive or pertinent negative responses have been documented in the HPI. ROS Other: All systems not noted in ROS Statement are negative. Past Medical History Past Medical History: Atrial Fibrillation, COPD, Diabetes Mellitus, GERD/Reflux, Hyperlipidemia, Hypertension Additional Past Medical History / Comment(s): Lung CA (in remission) History of Any Multi-Drug Resistant Organisms: None Reported Additional Past Surgical History / Comment(s): Lung resection Past Psychological History: No Psychological Hx Reported Smoking Status: Former smoker Past Alcohol Use History: Occasional Past Drug Use History: None Reported - Past Family History Father Family Medical History: CVA/TIA Mother Family Medical History: Congestive Heart Failure (CHF) General Exam - General Exam Comments Initial Comments: GENERAL: Patient is well-developed and well-nourished. Patient is nontoxic and well- hydrated and is in mild distress. ENT: Neck is soft and supple. No significant lymphadenopathy is noted. Oropharynx is clear. Moist mucous membranes. Neck has full range of motion without eliciting any pain. EYES: The sclera were anicteric and conjunctiva were pink and moist. Extraocular movements were intact and pupils were equal round and reactive to light. Eyelids were unremarkable. PULMONARY: Unlabored respirations. Good breath sounds bilaterally. No audible rales rhonchi or wheezing was noted. CARDIOVASCULAR: There is a regular rate and rhythm without any murmurs gallops or rubs. ABDOMEN: Soft and nontender with normal bowel sounds. SKIN: Skin is clear with no lesions or rashes and otherwise unremarkable. NEUROLOGIC: Patient is alert and oriented x3. Cranial nerves II through XII are grossly intact. Motor and sensory are also intact. Normal speech, volume and content. Symmetrical smile. Cerebellar testing finger to nose is normal. Patient does get dizzy when she moves her head quickly in the emergency department. MUSCULOSKELETAL: Normal extremities with adequate strength and full range of motion. LYMPHATICS: No significant lymphadenopathy is noted PSYCHIATRIC: Normal psychiatric evaluation. Limitations: no limitations Course Vital Signs 05/10/19 09:13 Temperature 97.3 F L Pulse Rate 108 H Respiratory 22 Rate Blood Pressure 158/59 O2 Sat by Pulse 100 Oximetry Medical Decision Making - Medical Decision Making EKG shows normal sinus rhythm at 89 bpm IN interval 174 QRS is 76 QT interval 356 QTC is 433. EKG shows no ST segment elevation or depression. - Lab Data Result diagrams: 05/10/19 09:47 05/10/19 09:47 Lab Results 1105/10/19 05/10/19 Range/Units 09:47 09:47 09:47 WBC 6.4 (3.8-10.6) k/uL RBC 3.89 (3.80-5.40) m/uL Hgb 12.6 (11.4-16.0) gm/dL Hct 39.1 (34.0-46.0) % MCV 100.5 H (80.0-100.0) fL MCH 32.4 (25.0-35.0) pg MCHC 32.3 (31.0-37.0) g/dL RDW 12.7 (11.5-15.5) % Plt Count 287 (150-450) k/uL Neutrophils % 78 % Lymphocytes % 14 % Monocytes % 4 % Eosinophils % 2 % Basophils % 0 % Neutrophils # 5.0 (1.3-7.7) k/uL Lymphocytes # 0.9 L (1.0-4.8) k/uL Monocytes # 0.2 (0-1.0) k/uL Eosinophils # 0.1 (0-0.7) k/uL Basophils # 0.0 (0-0.2) k/uL PT 19.9 H (9.0-12.0) sec INR 2.0 H (<1.2) APTT 33.5 H (22.0-30.0) sec Sodium 139 (137-145) mmol/L Potassium 4.0 (3.5-5.1) mmol/L Chloride 107 (98-107) mmol/L Carbon Dioxide 18 L (22-30) mmol/L Anion Gap 14 mmol/L BUN 21 H (7-17) mg/dL Creatinine 1.50 H (0.52-1.04) mg/dL Est GFR (CKD-EPI)AfAm 43 (>60 ml/min/1.73 sqM) Est GFR (CKD-EPI)NonAf 37 (>60 ml/min/1.73 sqM) Glucose 44 L* (74-99) mg/dL POC Glucose (mg/dL) (75-99) mg/dL POC Glu Advice Line Rn ID Calcium 9.7 (8.4-10.2) mg/dL Magnesium 1.7 (1.6-2.3) mg/dL Total Bilirubin 0.4 (0.2-1.3) mg/dL AST 35 (14-36) U/L ALT 30 (9-52) U/L Alkaline Phosphatase 54 (38-126) U/L Troponin I (0.000-0.034) ng/mL Total Protein 6.8 (6.3-8.2) g/dL Albumin 4.1 (3.5-5.0) g/dL Serum Alcohol 130 mg/dL 05/10/19 05/10/19 Range/Units 09:47 11:18 WBC (3.8-10.6) k/uL RBC (3.80-5.40) m/uL Hgb (11.4-16.0) gm/dL Hct (34.0-46.0) % MCV (80.0-100.0) fL MCH (25.0-35.0) pg MCHC (31.0-37.0) g/dL RDW (11.5-15.5) % Plt Count (150-450) k/uL Neutrophils % % Lymphocytes % % Monocytes % % Eosinophils % % Basophils % % Neutrophils # (1.3-7.7) k/uL Lymphocytes # (1.0-4.8) k/uL Monocytes # (0-1.0) k/uL Eosinophils # (0-0.7) k/uL Basophils # (0-0.2) k/uL PT (9.0-12.0) sec INR (<1.2) APTT (22.0-30.0) sec Sodium (137-145) mmol/L Potassium (3.5-5.1) mmol/L Chloride (98-107) mmol/L Carbon Dioxide (22-30) mmol/L Anion Gap mmol/L BUN (7-17) mg/dL Creatinine (0.52-1.04) mg/dL Est GFR (CKD-EPI)AfAm (>60 ml/min/1.73 sqM) Est GFR (CKD-EPI)NonAf (>60 ml/min/1.73 sqM) Glucose (74-99) mg/dL POC Glucose (mg/dL) 84 (75-99) mg/dL POC Glu Advice Line Rn ID Larson, Chance Calcium (8.4-10.2) mg/dL Magnesium (1.6-2.3) mg/dL Total Bilirubin (0.2-1.3) mg/dL AST (14-36) U/L ALT (9-52) U/L Alkaline Phosphatase (38-126) U/L Troponin I <0.012 (0.000-0.034) ng/mL Total Protein (6.3-8.2) g/dL Albumin (3.5-5.0) g/dL Serum Alcohol mg/dL Disposition Clinical Impression: Sphenoid sinusitis, Acute alcohol intoxication, Dizzy, Hypoglycemia Disposition: HOME SELF-CARE Condition: Good Instructions (If sedation given, give patient instructions): Hypoglycemia in a Person with Diabetes (ED), Alcohol Intoxication (ED) Prescriptions: Amoxicillin/Potassium Clav [Augmentin 875-125 Tablet] 1 each PO Q12HR #28 tab Is patient prescribed a controlled substance at d/c from ED?: No Referrals: Ludwig Madison MD [Primary Care Provider] - 1-2 days Time of Disposition: 11:39
[2019-05-10 10:02] LABS: Basophils % (A) 0 %; Eosinophils # (A) 0.1 k/uL (0-0.7); Eosinophils % (A) 2 %; HCT 39.1 % (34.0-46.0); HGB 12.6 gm/dL (11.4-16.0); Lymphocytes # (A) 0.9 k/uL (1.0-4.8); Lymphocytes % (A) 14 %; MCH 32.4 pg (25.0-35.0); MCHC 32.3 g/dL (31.0-37.0); MCV 100.5 fL (80.0-100.0); Mean Platelet Volume 6.3; Monocytes # (A) 0.2 k/uL (0-1.0); Monocytes % (A) 4 %; Neutrophils % (A) 78 %; Platelet Count 287 k/uL (150-450); RBC 3.89 m/uL (3.80-5.40); RDW 12.7 % (11.5-15.5); WBC 6.4 k/uL (3.8-10.6)
--- NOTE | 2019-05-10 10:08 | CT ---
EXAMINATION TYPE: CT brain wo con DATE OF EXAM: 05/10/2019 HISTORY: vertigo CT DLP: 1091.4 mGycm. Automated Exposure Control for Dose Reduction was Utilized. TECHNIQUE: CT scan of the head is performed without contrast. COMPARISON: None. FINDINGS: There is no acute intracranial hemorrhage or midline shift identified. There is diffuse v entricular and sulcal prominence consistent with mild diffuse age-related cerebral atrophy. Mix-whit e matter differentiation is fairly well maintained. Air fluid level right sphenoid sinus. Remainder v isualized paranasal sinuses are clear. Visualized portion of the globes are intact bilaterally. No harvey spicious opacity bilateral mastoid air cells. IMPRESSION: No acute intracranial hemorrhage or midline shift. There is mild diffuse age-related ce rebral atrophy . Acute right sphenoid sinusitis.
[2019-05-10 10:09] LABS: Partial Thromboplastin Time 33.5 sec (22.0-30.0); Prothrombin Time 19.9 sec (9.0-12.0)
--- NOTE | 2019-05-10 10:11 | XR ---
EXAMINATION TYPE: XR chest 2V DATE OF EXAM: 05/10/2019 COMPARISON: Prior chest x-ray February 10, 2019. HISTORY: History of lung cancer and atrial fibrillation with chest pain. TECHNIQUE: Frontal and lateral views of the chest are obtained. FINDINGS: Stable right internal jugular Mediport catheter. Overlying surgical clips redemonstrated. T here is chronic parenchymal change without suspicious focal air space opacity, pleural effusion, or p neumothorax seen. The cardiac silhouette size is stable and within normal limits. The osseous stru ctures are intact. Overlying surgical clips right anterior chest wall redemonstrated. IMPRESSION: Chronic changes without acute pulmonary process.
[2019-05-10 10:13] LABS: Albumin 4.1 g/dL (3.5-5.0); Calcium 9.7 mg/dL (8.4-10.2); Magnesium 1.7 mg/dL (1.6-2.3); Total Bilirubin 0.4 mg/dL (0.2-1.3); Total Protein 6.8 g/dL (6.3-8.2)
[2019-05-10 11:19] LABS: Glucose,Whole Blood 84 mg/dL (75-99)
[2019-05-10 12:21] VITALS: BP 130/83; PULSE 72; RESP 18
== END 2019-05-10 12:19 | disposition home or self-care (01) ==
LOC: EC 09:08
DX: E11.649 Type 2 diabetes mellitus with hypoglycemia without coma (principal); J32.3 Chronic sphenoidal sinusitis; F10.129 Alcohol abuse with intoxication, unspecified; I48.91 Unspecified atrial fibrillation; E78.5 Hyperlipidemia, unspecified; I10 Essential (primary) hypertension; Z85.118 Personal history of other malignant neoplasm of bronchus and lung; Z87.891 Personal history of nicotine dependence; Z79.4 Long term (current) use of insulin; Z79.01 Long term (current) use of anticoagulants; Z79.899 Other long term (current) drug therapy; Z91.041 Radiographic dye allergy status; Z91.013 Allergy to seafood
CPT/HCPCS: 36415; 70450; 71046; 80053; 80320; 83735; 84484; 85025; 85610; 85730; 93005; 96360; 99285

== ENCOUNTER → 2019-07-11 | Outpatient (CLI) | payer SELFPAY ==
[2019-07-11 19:26] LABS: African American GFR (CKD) 50.9 (60.0-200.0); Anion Gap 6.6 mmol/L (4.00-12.00); BUN/Creat Ratio 13.85 Ratio (12.00-20.00); Calcium 9.9 mg/dL (8.7-10.3); Carbon Dioxide 26.4 mmol/L (21.6-31.8); Chol/HDL Ratio 2.16; LDL Cholesterol,Calculated 48.8 mg/dL (0.0-131.0); Non-African American GFR(CKD) 43.9 (60.0-200.0); Potassium 4.9 mmol/L (3.5-5.5); VLDL Calculation 31.2 mg/dL (5.00-40.00)
== END | disposition home or self-care (01) ==
LOC: LABWHC1 10:26
PROVIDERS: ATTEND Physician Assistant
DX: I10 Essential (primary) hypertension (principal); E78.5 Hyperlipidemia, unspecified
CPT/HCPCS: 36415; 80048; 80061

== ENCOUNTER → 2023-12-09 | Outpatient (CLI) | payer MEDICARE ==
[2023-12-09 17:24] LABS: Basophils # (A) 0.08 X 10*3/uL (0.00-0.10); Basophils % (A) 1.3 %; Eosinophils # (A) 0.16 X 10*3/uL (0.04-0.35); Eosinophils % (A) 2.6 %; HCT 34.5 % (37.2-46.3); HGB 11.3 g/dL (12.0-15.0); Lymphocytes # (A) 0.86 X 10*3/uL (0.90-5.00); Lymphocytes % (A) 14.1 %; MCH 33.2 pg (27.0-32.0); MCHC 32.8 g/dL (32.0-37.0); MCV 101.5 FL (80.0-97.0); Mean Platelet Volume 9.5 FL (9.5-12.2); Monocytes # (A) 0.57 X 10*3/uL (0.20-1.00); Monocytes % (A) 9.3 %; NRBC Per 100 WBC 0 X 10*3/uL (0.00-0.01); Neutrophils # (A) 4.21 X 10*3/uL (1.80-7.70); Neutrophils % (A) 68.9 %; Platelet Count 294 X 10*3/uL (140-440); RDW 14.5 % (11.5-14.5); WBC 6.11 X 10*3/uL (4.50-10.00)
[2023-12-09 17:43] LABS: ALT 16 U/L (8-44); AST 34 U/L (13-35); Albumin 4.1 g/dL (3.8-4.9); Albumin/Globulin Ratio 1.64 Ratio (1.60-3.17); Alkaline Phosphatase 87 U/L (41-126); Blood Urea Nitrogen 11.9 mg/dL (9.0-27.0); Calcium 8.8 mg/dL (8.7-10.3); Carbon Dioxide 21.1 mmol/L (21.6-31.8); Chloride 103 mmol/L (96-109); Chol/HDL Ratio 2.39 Ratio; Globulin 2.5 g/dL (1.6-3.3); Glucose 132 mg/dL (70-110); LDL Cholesterol,Calculated 76.6 mg/dL (0.0-131.0); Magnesium 1.2 mg/dL (1.5-2.4); Potassium 5.2 mmol/L (3.5-5.5); Sodium 136 mmol/L (135-145); Total Bilirubin 0.3 mg/dL (0.3-1.2); Total Protein 6.6 g/dL (6.2-8.2); VLDL Calculation 19.52 mg/dL (5.00-40.00)
== END | disposition home or self-care (01) ==
LOC: LABWHC1 08:36
PROVIDERS: ATTEND Nurse Practitioner Adult Health
DX: E78.5 Hyperlipidemia, unspecified (principal); E11.9 Type 2 diabetes mellitus without complications; I44.1 Atrioventricular block, second degree; I48.0 Paroxysmal atrial fibrillation
CPT/HCPCS: 36415; 80053; 80061; 83036; 83735; 84443; 85025

== ENCOUNTER → 2024-03-15 | Outpatient (CLI) | payer MEDICARE ==
--- NOTE | 2024-03-15 13:51 | XR ---
EXAMINATION TYPE: XR thoracic spine 2V DATE OF EXAM: 03/15/2024 12:22 PM CLINICAL INDICATION: Female, 68 years old with history of R52 pain; [facility] COMPARISON: None TECHNIQUE: XR thoracic spine 2V views of the spine in Frontal and lateral projections. FINDINGS: No evidence of acute fracture. There is scattered multilevel disk space narrowing without loss of ve rtebral body height. There is normal alignment of the thoracic vertebral bodies. Scattered osteophyte formation along the anterior and lateral aspects of the vertebral bodies. Neural foramen are patent given limitations of this exam. Spinal canal appears patent. Right chest wall [id number] tip terminating in the superior vena cava. IMPRESSION: 1. No acute osseous pathology. 2. Moderate multilevel degeneration changes of the spine. [facility], , 03/15/2024 1:49 PM
--- NOTE | 2024-03-15 13:57 | XR ---
EXAMINATION TYPE: XR lumbar spine 2 or 3V DATE OF EXAM: 03/15/2024 12:22 PM CLINICAL INDICATION: Female, 68 years old with history of R52 pain; [facility] COMPARISON: None TECHNIQUE: XR lumbar spine 2 or 3V - Frontal, lateral and coned in L5-S1 lateral views of the spine. FINDINGS: No evidence of any acute osseous pathology. No evidence of loss of vertebral body height i s seen. There is normal alignment of the lumbar vertebral bodies. Scattered disc space narrowing. Mul tilevel marginal osteophyte formation throughout the visualized spine. There is facet joint arthropat hy throughout the spine. Scattered at least mild neural foraminal stenosis. Atherosclerosis of the ar terial vasculature. IMPRESSION: 1. No acute fracture. 2. Moderate multilevel disc degeneration. [facility], , 03/15/2024 1:54 PM
== END | disposition home or self-care (01) ==
LOC: RADXRMAIN 11:58
PROVIDERS: ATTEND Chiropractor
DX: R52 Pain, unspecified
CPT/HCPCS: 72070; 72100